=== PATIENT | male | born 1955 | race Caucasian/White ===

== ENCOUNTER → 2020-10-23 18:00 | Outpatient (CLI) | payer MEDICARE, BC ==
[2014-07-22 05:57] VITALS: BMI 24.4
[~2020-10-23 18:00] MED LIST: CELEBREX200 MG PO; FISH OIL 1,0001 CA1 PO; MEDROL DOSE PACK4 MG PO; NEURONTIN 400400 MG PO; NUCYNTA50 MG; PREVACID30 MG PO
== END | disposition home or self-care (01) ==
LOC: D.LABREF 18:00
PROVIDERS: ATTEND Orthopaedic Surgery
DX: M19.012 Primary osteoarthritis, left shoulder (principal)